=== PATIENT | female | born 1960 | race Caucasian/White ===

== ENCOUNTER 2023-05-23 10:04 | Outpatient (OUT) | payer OTHER, SELFPAY ==
[2023-05-23 12:04] LABS: Alanine Aminotransferase 26 U/L (14-59)
[2023-05-24 06:09] LABS: HCV Antibody Non Reactive (Non Reactive); HIV Ab/p24 Ag Screen Non Reactive (Non Reactive); Hepatitis B Surf Ab Quant <3.1 mIU/mL (Immunity>9.9)
[2023-05-24 12:10] LABS: Rapid Plasma Reagin, Quant Non Reactive titer (NonRea<1:1)
== END 2023-05-23 10:05 | disposition home or self-care (01) ==
LOC: LAB 10:04
PROVIDERS: Visit Provider Nurse Practitioner Family
DX: Z77.21 Contact with and (suspected) exposure to potentially hazardous body fluids (principal); T14.8XXA Other injury of unspecified body region, initial encounter; W46.1XXA Contact with contaminated hypodermic needle, initial encounter
CPT/HCPCS: 36415; 84460; 86592; 86706; 86803; 87389